=== PATIENT | female | born 2000 | race Caucasian/White ===

== ENCOUNTER → 2021-07-29 | Emergency (ER) | payer OTHER ==
[~2021-07-29] VITALS: Ht 162.6 cm; Wt 45.4 kg
[~2021-07-29] MED LIST: IBUPROFEN 400 MG TABLET ONE; IBUPROFEN 400 MG TABLET PO ONE
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
--- NOTE | 2021-07-29 02:51 | NUR ---
Patient discharged to home in stable condition. Written and verbal after care instructions given. Patient verbalizes understanding of instruction.
[2021-07-29 02:59] VITALS: BP 131/80
== END | disposition home or self-care (01) ==
LOC: ER 00:43
DX: M79.18 Myalgia, other site (principal); M54.6 Pain in thoracic spine; V49.59XA Passenger injured in collision with other motor vehicles in traffic accident, initial encounter; Y93.89 Activity, other specified; Y92.413 State road as the place of occurrence of the external cause; Y99.8 Other external cause status
CPT/HCPCS: 72074-TC